=== PATIENT | female | born 1935 | race Hispanic/Latino ===

== ENCOUNTER 2018-03-23 10:03 | Outpatient (CLI) | payer MEDICARE, BC | END 2018-03-23 10:04 | disposition home or self-care (01) | LOC: RAD 10:03 | DX: Z12.31 Encounter for screening mammogram for malignant neoplasm of breast (principal) ==

== ENCOUNTER 2018-03-31 09:38 | Outpatient (CLI) | payer MEDICARE | END 2018-03-31 09:39 | disposition home or self-care (01) | LOC: RAD 09:38 ==